=== PATIENT | female | born 1950 | race Two or more races ===

== ENCOUNTER 2023-11-19 17:14 | Emergency (ER) | payer OTHER ==
[~2023-11-19] VITALS: Ht 165.1 cm; Wt 100.0 kg
[2023-11-19] MEDS: HYDROcodone-ACET 10/325MG TAB PO ONE (20:34)
[2023-11-19] MEDS ORDERED: IBUP-1455 PO (22:13)
[2023-11-19] MEDS ORDERED: ACE3T PO (22:13)
[2023-11-19 22:30] VITALS: PULSE 68; RESP 19; TEMP 98.6; O2SAT 100
[2023-11-19] MEDS: KETAMINE 50mg/ML 10ml Vial (500mg/10ml) IV ONE (22:30)
[2023-11-20 03:00] VITALS: BP 169/85; PULSE 62; RESP 14; O2SAT 95
== END 2023-11-20 03:00 | disposition home or self-care (01) ==
LOC: ER 17:14 → EDBD 17:14 → ER 11-20 03:00
DX: S43.005A Unspecified dislocation of left shoulder joint, initial encounter (principal); W18.39XA Other fall on same level, initial encounter; Y93.89 Activity, other specified; Y92.89 Other specified places as the place of occurrence of the external cause; Y99.8 Other external cause status
CPT/HCPCS: 23650; 73020; 73030; 99152